=== PATIENT | female | born 1990 | race Caucasian/White ===

== ENCOUNTER 2022-07-01 16:47 | Inpatient (IN) ==
[2022-07-01] MEDS ORDERED: Famotidine 20 MG/2 ML VIAL IVP PRN (17:32)
[2022-07-01] MEDS ORDERED: Metoclopramide 10 MG/2 ML VIAL IVP PRN (17:32)
[2022-07-01] MEDS ORDERED: Naloxone 0.4 MG/ML INJ IVP PRN (17:32)
[2022-07-01] MEDS ORDERED: EPHEDrine sulfate 50 MG/10 ML VIAL IVP PRN (17:55)
[2022-07-01] MEDS ORDERED: Epidural Premix (fent/bupiv) 110 ML EP SCH (18:00)
[2022-07-01 18:38] LABS: Basophils # 0.1 K/mcL (0.0-0.2); Basophils % 0.5 %; Eosinophils # 0.4 K/mcL (0.0-0.6); Eosinophils % 3.5 %; Hematocrit 39.9 % (35.3-44.9); Hemoglobin 13.3 g/dL (11.5-15.4); Immature Granulocytes % 0.9 % (0-4); Lymphocytes # 3.1 K/mcL (0.6-4.6); Lymphocytes % 28.3 %; Mean Corpuscular HGB Conc 33.3 g/dL (31.6-35.5); Mean Corpuscular Hemoglobin 29.5 pg (28.0-33.3); Mean Corpuscular Volume 88.5 fL (83.0-100.0); Mean Platelet Volume 10.9 fL (9.4-12.4); Monocytes # 0.8 K/mcL (0.0-1.3); Monocytes % 7.5 %; Neutrophils # 6.5 K/mcL (1.6-8.9); Platelet Count 270 K/mcL (140-400); Red Blood Count 4.51 M/mcL (3.82-4.97); Red Cell Distribution Width 13.2 % (11.5-14.5); Segmented Neutrophils % 59.3 %
[2022-07-01 18:40] LABS: Amphetamine Screen,Urine Negative ng/mL (Cutoff=1000); Barbiturate Screen,Urine Negative ng/mL (Cutoff=200); Benzodiazepines Screen,Urine Negative ng/mL (Cutoff=200); Cannabinoid Screen,Urine Negative ng/mL (Cutoff = 50); Cocaine Screen,Urine Negative ng/mL (Cutoff= 300); Opiate Screen,Urine Negative ng/mL (Cutoff=300); Phencyclidine Screen,Urine Negative ng/mL (Cutoff=25)
[2022-07-01] MEDS: miSOPROStoL 25 MCG TABLET PO PRN ×2 (19:25→23:46)
[2022-07-02] MEDS ORDERED: Oxytocin 30 UNIT/503 ML BAG IVC SCH ×2 (04:00→18:03)
[2022-07-02] MEDS ORDERED: Ringers Solution, Lactated 1,000 ML IVC SCH (04:15)
[2022-07-02] MEDS ORDERED: Lidocaine 1% 20 ML MDV INFILT PRN (15:48)
[2022-07-02] MEDS ORDERED: Measles/Mumps/Rubella Vacc 0.5 ML VIAL SQ PRN (18:03)
[2022-07-02] MEDS ORDERED: Benzocaine/Menthol 56 GM AEROSOL SPRAY TP PRN (18:03)
[2022-07-02] MEDS ORDERED: Lanolin 7 G OINT...G. TP PRN (18:03)
[2022-07-02] MEDS ORDERED: Ondansetron ODT 4 MG TAB.RAPDIS SL PRN (18:03)
[2022-07-02] MEDS ORDERED: Rho Immune Globulin 1,500 UNIT SYRINGE IM PRN (18:03)
[2022-07-03 05:09] LABS: Basophils % 0.2 %; Eosinophils # 0.1 K/mcL (0.0-0.6); Eosinophils % 0.5 %; Hematocrit 27.7 % (35.3-44.9); Immature Granulocytes % 0.7 % (0-4); Lymphocytes # 4.3 K/mcL (0.6-4.6); Mean Corpuscular HGB Conc 34.7 g/dL (31.6-35.5); Mean Corpuscular Hemoglobin 30.3 pg (28.0-33.3); Mean Corpuscular Volume 87.4 fL (83.0-100.0); Mean Platelet Volume 10.3 fL (9.4-12.4); Monocytes # 2.1 K/mcL (0.0-1.3); Monocytes % 9.8 %; Platelet Count 204 K/mcL (140-400); Red Blood Count 3.17 M/mcL (3.82-4.97); Red Cell Distribution Width 13.3 % (11.5-14.5); Segmented Neutrophils % 68.8 %
[2022-07-03 05:12] LABS: Neutrophils # 14.9 K/mcL (1.6-8.9); White Blood Count 21.7 K/mcL (4.3-11.1)
[2022-07-03 05:13] LABS: Hemoglobin 9.6 g/dL (11.5-15.4)
[2022-07-03] MEDS: Ibuprofen 600 MG TABLET PO SCH ×3 (07:01→13:49)
[2022-07-03] MEDS: Acetaminophen 325 MG TABLET PO SCH ×4 (07:01→13:49)
[2022-07-03] MEDS ORDERED: Prenatal Vit/FA 1 EACH TABLET PO SCH (09:00)
[2022-07-03 16:48] VITALS: BP 99/62; PULSE 82; TEMP 97.9; O2SAT 98
== END 2022-07-03 17:15 | disposition home or self-care (01) | DRG 806 ==
LOC: 1NENULAB 16:47 → 1NENUOBS 07-02 19:41
PROVIDERS: ADMIT Obstetrics & Gynecology; ATTEND Obstetrics & Gynecology